=== PATIENT | female | born 1995 | race Caucasian/White ===

== ENCOUNTER 2017-01-18 02:51 | Emergency (ER) | payer OTHER ==
[~2017-01-18 02:51] MED LIST: AMOXICILLIN PO; ZITHROMAX PO; ZITHROMAX1 G/PKT PO
== END 2017-01-18 04:40 | disposition home or self-care (01) ==
LOC: CED 02:51
DX: J02.9 Acute pharyngitis, unspecified (principal); H66.91 Otitis media, unspecified, right ear; Z79.899 Other long term (current) drug therapy
CPT/HCPCS: 99282